=== PATIENT | male | born 1985 | race Caucasian/White ===

== ENCOUNTER 2021-12-10 16:40 | Emergency (ER) | payer SELFPAY ==
[~2021-12-10] VITALS: Ht 185.4 cm; Wt 140.2 kg
== END 2021-12-10 20:07 | disposition left against medical advice (07) ==
LOC: M ED 16:40 → EDSEX 16:40 → M ED 20:07
DX: Z53.21 Procedure and treatment not carried out due to patient leaving prior to being seen by health care provider (principal)

== ENCOUNTER → 2022-05-11 | Outpatient (REF) | LOC: M PLAIMG 11:24 | PROVIDERS: ATTEND Internal Medicine | DX: Z00.00 Encounter for general adult medical examination without abnormal findings (principal) ==